=== PATIENT | female | born 1935 | race African-American/Black ===

== ENCOUNTER 2020-04-30 12:02 | Emergency (ER) | payer MEDICARE, MEDICAID ==
[~2020-04-30] VITALS: Ht 172.7 cm; Wt 99.0 kg
[2020-04-30] MEDS ORDERED: ACETAMINOPHEN 325MG TABLET PO ONE (12:45)
[2020-04-30] MEDS ORDERED: ACET-2708 MT (14:38)
[2020-04-30 14:57] VITALS: BP 137/80
== END 2020-04-30 15:09 | disposition home or self-care (01) ==
LOC: ER 12:23
DX: M79.605 Pain in left leg (principal); D16.9 Benign neoplasm of bone and articular cartilage, unspecified
CPT/HCPCS: 73590; 73610; 99284